=== PATIENT | male | born 1995 | race Caucasian/White ===

== ENCOUNTER 2020-12-18 14:47 | Outpatient (CLI) | payer OTHER, SELFPAY ==
--- NOTE | ~2020-12-18 | MR_ITS ---
EXAMINATION: MR knee RT wo con DATE: 12/18/2020 16:33 INDICATION: Right knee injury TECHNIQUE: Magnetic resonance imaging (MRI) of the right knee was performed without intravenous contr ast. Sequences included coronal PD-weighted FSE, coronal PD-weighted FS FSE, sagittal T2-weighted FS E, sagittal PD-weighted FS FSE and axial PD weighted fat saturated FSE. COMPARISON: None. FINDINGS: There is mild motion artifact on multiple sequences despite repetition of a couple of the sequences w hich mildly limits evaluation. Medial compartment: Radial tear/avulsion at the posterior root of the medial meniscus. Articular cartilage is normal. Lateral compartment: Lateral meniscus is normal. Articular cartilage is normal. Patellofemoral compartment: Articular cartilage is normal. Ligaments and tendons: Anterior and posterior cruciate ligaments are normal. The medial collateral ligament and fibular sandi ateral ligament complex are normal. The extensor mechanism is normal. The visualized medial and later al hamstring tendons as well as the iliotibial band are normal. Fluid: Physiologic amount of fluid in the joint space. No loose osteochondral bodies identified. Osseous/other: Normal marrow signal. No fracture or pathologic marrow replacing process. IMPRESSION: 1. Radial tear/avulsion at the posterior root of the medial meniscus. Reviewed, dictated and finalized at location B.
== END 2020-12-18 14:48 | disposition home or self-care (01) ==
PROVIDERS: PCP Family Medicine; Visit Provider Family Medicine
DX: S83.241A Other tear of medial meniscus, current injury, right knee, initial encounter (principal); M25.561 Pain in right knee
CPT/HCPCS: 73721

== ENCOUNTER 2021-09-07 12:46 | Emergency (ER) | payer OTHER, SELFPAY ==
--- NOTE | ~2021-09-07 | XR_ITS ---
XR chest 2V DATE: 09/07/2021 13:23 INDICATION: Seizure TECHNIQUE: AP and lateral views COMPARISON: None FINDINGS: Normal heart size. No hilar or mediastinal enlargement. No pulmonary infiltrate or consolid ation, pleural effusion or pulmonary vascular congestion or pneumothorax. IMPRESSION: Negative Reviewed, dictated and finalized at location A. IMPRESSION: Negative
[2021-09-07 12:51] VITALS: BP 148/67; PULSE 107; RESP 22; TEMP 36.6; O2SAT 98
[2021-09-07 12:56] VITALS: PULSE 104
[2021-09-07] MEDS: SODIUM CHLORIDE 0.9% IV 1,000 ML 999 ML IV CONT (13:26)
[2021-09-07 13:36] LABS: Basophils Percent Auto 0.3 % (0.2-1.2); Eosinophils Percent Auto 0.6 % (0-4.4); Hematocrit 43.8 % (42.0-52.0); Hemoglobin 14.9 g/dL (14.0-18.0); Immature Granulocyte Absolute 0.02 K/mm3 (0.00-0.031); Immature Granulocyte Percent A 0.3 % (0-0.5); Lymphocytes Absolute Auto 0.84 K/mm3 (0.9-3.2); Lymphocytes Percent Auto 12.8 % (18.3-44.2); Mean Corpuscular Hemoglobin 29.7 pg (26-34); Mean Corpuscular Volume 87.4 fl (80-100); Mean Platelet Volume 11.5 fl (7.4-10.4); Monocytes Absolute Auto 0.6 K/mm3 (0.1-0.6); Monocytes Percent Auto 8.9 % (2.6-8.5); Neutrophils Percent Auto 77.1 % (45.5-73.1); Platelet Count Result 159 k/mm3 (150-375); Red Blood Count 5.01 M/mm3 (4.6-6.20); Red Cell Distribution Width 13.2 % (11.5-14.5); White Blood Count 6.5 K/mm3 (4.5-10.0)
[2021-09-07 13:47] LABS: Ethanol < 10 mg/dL (<10)
[2021-09-07 13:49] LABS: Alanine Aminotransferase 17 U/L (6-50); Albumin Level 5.3 g/dL (3.5-5.1); Alkaline Phosphatase 57 U/L (38-126); Anion Gap 13 mmol/L (8-16); Aspartate Amino Transferase 33 U/L (17-59); Bilirubin,Total 1.4 mg/dL (0.2-1.3); Blood Urea Nitrogen 13 mg/dL (9-20); Calcium 9.2 mg/dL (8.4-10.2); Carbon Dioxide 24 mmol/L (22-30); Chloride 103 mmol/L (98-107); Estimated CRCL calculation 79 ml/min; Estimated Glomerular Filt Rate > 60; Glucose 108 mg/dL (65-110); Potassium 4.1 mmol/L (3.4-5.0); Sodium 140 mmol/L (137-145)
--- NOTE | 2021-09-07 14:42 | ED.SEIZURE ---
HPI - Seizure General Chief Complaint: Seizure Stated Complaint: Seizure Time Seen by Provider: 09/07/21 13:00 History of Present Illness HPI Narrative: Patient is a 26-year-old male who presents ER status post seizure. Patient has history of seizure disorder and takes Lamictal 100 mg in the evenings. Reports last night he was at a birthday democr[employer] for his grandfather who turned 72. There is no open bar and he partook in ingesting multiple alcoholic beverages. He thinks he may have overdone it provoking his seizure. He had a witnessed 1 minute tonic-clonic seizure. Patient is only had 1 other seizure and it was 4 years ago. He then was seen by neurologist and had an outpatient EEG that showed epileptiform waveforms. He has been on medication since then and has tolerated it well. Patient endorses some throbbing headache at this time but no other complaints. Related Data Home Medications Medication Instructions Recorded Confirmed lamotrigine 100 mg PO DAILY 09/07/21 Allergies Allergy/AdvReac Type Severity Reaction Status Date / Time No Known Allergies Allergy Verified 09/07/21 12:50 Review of Systems Review of Systems: All systems reviewed & are unremarkable except as noted in HPI and below Constitutional: Constitutional: Denies chills, Denies fever(s) and Denies weakness Cardiovascular: Cardiovascular: Denies chest pain and Denies radiating jaw, neck or arm pain Respiratory: Respiratory: Denies cough, Denies dyspnea and Denies wheezing Gastrointestinal: Gastrointestinal: Denies abdominal pain, Denies nausea and Denies vomiting Neurologic: Reports headache(s) Comments: Seizure PMFSH Past Medical History Medical History (Updated 09/07/21 @ 14:50 by López Mota MD) Seizure disorder Surgical History Surgical History (Updated 09/07/21 @ 14:50 by López Mtoa MD) No pertinent past surgical history Social History Social History (Updated 09/07/21 @ 14:50 by López Mota MD) Alcohol intake: current Exam Narrative: GENERAL: Well-appearing, well-nourished, and in no acute distress. HEAD: Normocephalic, atraumatic. EYES: PERRL and EOMI. ENT: Mucous membranes moist. CHEST: Clear to auscultation. No respiratory distress. HEART: Regular rate and rhythm. Normal peripheral pulses. ABDOMEN: Soft, nontender, nondistended. EXTREMITIES: Normal range of motion. No edema. NEURO: Alert and oriented x3. PSYCH: Normal mood and affect. Course Course Emergency Course: Patient resting comfortably. Toradol given for headache. Informed of results. Lactate level pending. Will not modify dosage at this time since he has been well controlled otherwise. Recommend he contact his neurologist for further guidance. Vital Signs Vital signs: Vital Signs Temperature 97.9 F 09/07/21 12:51 Pulse Rate 107 H 09/07/21 12:51 Respiratory Rate 22 H 09/07/21 12:51 Blood Pressure 148/67 H 09/07/21 12:51 Pulse Oximetry 98 09/07/21 12:51 Temperature 97.9 F 09/07/21 12:51 Pulse Rate 104 H 09/07/21 12:56 Respiratory Rate 22 H 09/07/21 12:51 Blood Pressure 148/67 H 09/07/21 12:51 Pulse Oximetry 98 09/07/21 12:51 MDM - Seizure Lab Data Result diagrams: 09/07/21 13:29 09/07/21 13:29 Labs: Lab Results 09/07/21 09/07/21 09/07/21 Range/Units 13:29 13:29 13:29 WBC 6.5 (4.5-10.0) K/mm3 RBC 5.01 (4.6-6.20) M/mm3 Hgb 14.9 (14.0-18.0) g/dL Hct 43.8 (42.0-52.0) % MCV 87.4 (80-100) fl MCH 29.7 (26-34) pg MCHC 34.0 (32-36) g/dl RDW 13.2 (11.5-14.5) % Plt Count 159 (150-375) k/mm3 MPV 11.5 H (7.4-10.4) fl Immature Gran % (Auto) 0.3 (0-0.5) % Neut % (Auto) 77.1 H (45.5-73.1) % Lymph % (Auto) 12.8 L (18.3-44.2) % Kaufman % (Auto) 8.9 H (2.6-8.5) % Eos % (Auto) 0.6 (0-4.4) % Baso % (Auto) 0.3 (0.2-1.2) % Lymph # (Auto) 0.84 L (0.9-3.2) K/mm3 Kaufman # (Auto) 0.6 (0
[2021-09-07] MEDS: KETOROLAC 30 MG/ML VIAL (*BKC) IV PUSH (14:54)
[2021-09-10 21:09] LABS: Lamotrigine Lamictal 1.5 mcg/mL (4.0-18.0)
== END 2021-09-07 15:15 | disposition home or self-care (01) ==
PROVIDERS: Emergency Provider Emergency Medicine; PCP Family Medicine
DX: G40.909 Epilepsy, unspecified, not intractable, without status epilepticus (principal)
CPT/HCPCS: 36415; 71046; 80053; 80175; 80307; 85025; 96361; 96374; 99284; J1885; J7030